=== PATIENT | female | born 1945 | race Caucasian/White ===

== ENCOUNTER 2025-01-05 07:37 | Day surgery (SDC) | payer OTHER, SELFPAY ==
--- NOTE | 2024-12-20 08:11 | HPS.HSE ---
Family Physician
-
Family Physician: NOT KNOW UNKNOWN - PT DOES
Chief Complaint
-
Persistent atrial fibrillation.
History of Present Illness
The patient is an 79-year-old female presenting today for a persistent atrial fibrillation. The patient reports a history of dyspnea on exertion, fatigue, palpitations, and lightheadedness secondary to this diagnosis. She previously
underwent a cardioversion in August 2024 for her arrhythmia. Unfortunately, within 1 week of her procedure, her atrial fibrillation returned and she became symptomatic once again. She is on current pharmacological therapy with Metoprolol and
Multaq. She was previously intolerant to Amiodarone. She does report compliance with Eliquis for oral anticoagulation due to a [id number] of 3. She notes that her current symptoms associated with her arrhythmia greatly interfere with her
activities of daily living and overall impact her quality of life. She is interested in pursuing pulmonary vein isolation for further arrhythmia management. She does report shortness of breath and lightheadedness today due to her arrhythmia but
denies chest pain, nausea, vomiting, diarrhea, dizziness, cough, sore throat, or fever.
Medical History
Past Medical History
Past Medical History: Reports Other
Additional Past Medical History:
1. Persistent atrial fibrillation, status post cardioversion 08/2024; pharmacological therapy with Multaq and Metoprolol, oral anticoagulation with Eliquis.
2. Hypertension.
3. Borderline hypercholesterolemia.
4. Congestive heart failure, preserved ejection fraction.
5. Bifascicular block.
6. Newly diagnosed obstructive sleep apnea, awaiting CPAP.
7. Chronic kidney disease stage 3.
8. GERD.
9. Dysphagia.
10. Colon polyps.
11. Diverticulosis.
12. Balance difficulties.
13. Frequent headaches.
14. Lumbar degenerative disc disease.
15. L2-L5 epidural abscess with associated sepsis, 2019, treated with IV antibiotic therapy.
16. Osteoarthritis.
17. Bladder cancer, status post tumor excision 1985.
18. DCIS of right breast, status post right lumpectomy, 2007, and radiation.
19. Uterine cancer, status post hysterectomy with bilateral salpingo-oophorectomy 2010.
20. BRCA 2 gene mutation positive.
21. Anxiety.
22. Depression.
23. Hearing impairment bilaterally.
24. Morbid obesity, BMI 44.2.
25. Remote history of heavy tobacco abuse.
Past Surgical History: Reports Other
Additional Past Surgical History:
1. Cardioversion.
2. Lumbar laminectomy.
3. Lumbar fusion.
4. Bladder tumor excision.
5. Pelvic lymph node excision.
6. Hysterectomy.
7. Left ankle fracture repair with hardware.
8. Right breast biopsy.
9. Right breast lumpectomy.
10. Multiple colonoscopies.
Social History
Tobacco: Former Smoker (She is a former 2 pack per day cigarette smoker who quit tobacco altogether in 2001. )
Alcohol: Occasional (wine drinking reported. )
Living: Other (She lives with her life partner Chema in a second floor condo. )
Family History
Family History: Not pertinent
Allergies / Home Medications
Allergy/Medication List:
Home medications:
1. Acetaminophen 650 mg p.o. twice a day.
2. Albuterol sulfate 2 puffs inhaled every 4 hours as needed.
3. Amlodipine 5 mg p.o. daily.
4. Eliquis 5 mg p.o. twice a day.
5. Celebrex 200 mg p.o. daily.
6. Multaq 400 mg p.o. twice a day.
7. Duloxetine 30 mg p.o. daily.
8. Ergocalciferol 1,250 mcg p.o. weekly.
9. Furosemide 20 mg p.o. daily.
10. Metoprolol Succinate 100 mg p.o. at bedtime.
11. Metoprolol Tartrate 50 mg p.o. daily.
12. Pantoprazole 40 mg p.o. twice a day.
13. Potassium chloride 20 meq p.o. daily.
14. Anoro Ellipta 1 inhalation daily.
Allergies: No known allergies.
Review of Systems
-
A 12 point ROS was completed and negative except as noted: Yes
Physical Exam
Vital Signs
Blood pressure 148/94. Heart rate 96. Respirations 18. Pulse ox 100% on room air.
Height 5 feet, 2 inches. Weight 109.5 kg. BMI 44.2.
Physical Exam
General: Well Developed, Well Nourished and No Apparent Distress
HEENT: NormoCephalic, Moist mucous membranes, Atraumatic and PERRLA
Respiratory: Clear
Cardiac: Irregular Rhythm
GI: Soft, Non Tender, Non Distended and Other (Morbidly obese. )
Musculoskeletal: No Edema and Normal Gait & Station
Skin: Warm and Dry
Neuro: AO x 3 and Nonfocal/grossly intact
Laboratory Results
-
DIAGNOSTIC STUDIES as of 12/20/2024: White blood cell count 7.4. Hemoglobin 14.2. Platelet count 146,000. PT 16.1. INR 1.27. Sodium 139. Potassium 4.3. BUN 19. Creatinine 1.1. Glucose 108. Calcium 8.9. Magnesium 2.1. AST 25. ALT 19. Albumin 4.1.
Type and screen O negative.
EKG 12/20/2024: Atrial fibrillation. Left axis deviation. Inferior infarct and anterolateral infarct, age undetermined.
Chest 12/20/2024: Short segment common vestibule for the left superior and inferior pulmonary veins, fairly commonly seen and considered normal variant. No evidence of left atrial thrombus. Small right pleural effusion. Minimal left pleural effusion.
Echocardiogram 11/02/2024: Ejection fraction is 50-55%. Mild left ventricular hypertrophy. Atrial fibrillation noted.
Impression/Plan
-
IMPRESSION/PLAN:
1. Persistent atrial fibrillation: The patient is in need of pulmonary vein isolation with Dr. Blanco Richard on 01/05/2025. The benefits and risks of the procedure have been explained to the patient. The patient understands these risks and
wishes to proceed. She will not be required to undergo a pre-procedural transesophageal echocardiogram as she has been compliant with her home oral anticoagulation. She is aware to continue her Eliquis uninterrupted prior to her upcoming ablation.
She will take no medications the morning of her procedure. Post-procedure, the discontinuation of Multaq will be considered.
[2024-12-20 08:59] VITALS: BMI 44.2
[2024-12-20 09:50] LABS: % Basophils 1.2 % (0-2); % Eosinophils 4.2 % (0-6); % Immature Granulocytes 0.8 % (0-0.5); % Lymphocytes 11.5 % (20.5-51.1); % Monocytes 10.5 % (1.7-9.3); % Neutrophils 71.8 % (42.2-75.2); Absolute Basophils 0.1 10^3/uL (0-0.2); Absolute Eosinophils 0.3 10^3/uL (0-0.7); Absolute Immature Granulocytes 0.1 10^3/uL (0-0.05); Absolute Lymphocytes 0.9 10^3/uL (1.2-3.4); Absolute Monocytes 0.8 10^3/uL (0.1-0.6); Absolute Neutrophils 5.3 10^3/uL (1.4-6.5); Hematocrit 42.4 % (37.0-47.0); Hemoglobin 14.2 g/dL (12.0-16.0); Mean Corp Hgb Conc. 33.5 g/dL (33.0-37.0); Mean Corpuscular Hgb 30.8 pg (27.0-31.0); Mean Platelet Volume 10.9 fL (7.4-10.4); Nucleated Red Blood Cells % 0 %; Platelet Count 146 10^3/uL (130-400); Red Blood Cell Count 4.61 10^6/uL (4.20-5.40); Red Cell Dist. Width 13.8 % (11.5-14.5); White Blood Cell Count 7.4 10^3/uL (4.8-10.8)
[2024-12-20 10:11] LABS: INR 1.27; PT 16.1 Sec (11.4-14.6)
[2024-12-20 10:29] LABS: ALT (SGPT) 19 U/L (0-35); AST (SGOT) 25 U/L (14-36); Albumin 4.1 g/dl (3.5-5.0); Alkaline Phosphatase 94 U/L (38-126); Blood Urea Nitrogen 19 mg/dl (7-17); Calcium 8.9 mg/dl (8.4-10.2); Carbon Dioxide 27 mmol/L (22-30); Chloride 102 mmol/L (98-107); Estimated Creatinine Clearance 48 ml/min; Glucose 108 mg/dl (70-99); Magnesium 2.1 mg/dl (1.6-2.3); Potassium 4.3 mmol/L (3.5-5.1); Sodium 139 mmol/L (135-145); Total Bilirubin 0.6 mg/dl (0.2-1.3); Total Protein 6.5 g/dl (6.3-8.2)
[2025-01-05] VITALS (10 sets, daily range): BP systolic 93–133; BP diastolic 51–86; BMI 42.7
[2025-01-05] MEDS: TYLENOL 1000 MG PO (10:10)
--- NOTE | 2025-01-05 10:15 | ITS.CL.ABL ---
[employer] - Ablation
Ablation
Procedure Report:
ELECTROPHYSIOLOGIC STUDY AND POSSIBLE ABLATION
DATE: January 05, 2025
Primary Mobile Application Development Lead: Dr. Willy Dickey
INDICATION:
Symptomatic Atrial Fibrillation.
Persistent
HISTORY: See H and P.
Symptomatic AF, poorly controlled with attempted medical therapy.
She is referred from Dr. Willy Dickey
She has symptomatic persistent atrial fibrillation.
She had initially been treated with amiodarone in 2022 but was intolerant and amiodarone was stopped in May 2023.� She had recurrent symptomatic atrial fibrillation and was initiated on dronedarone September 01, 2024.
She underwent successful electrical cardioversion September 12, 2024.She subsequently has recurred.
She has been symptomatic with atrial fibrillation mostly dyspnea on exertion and fatigue
She has been on Eliquis 5 mg twice daily for atrial fibrillation related thromboembolic risk reduction.
She is also been maintained on metoprolol for rate control.
Medical history also includes hypertension.
There has been concern for obstructive sleep apnea and a sleep study was ordered.
Echocardiogram November 02, 2024 from [facility] finds LVEF 50-55%, mild LVH, normal RV size and function, normal size left atrium and right atrium.� She was noted to be in atrial fibrillation at that time.� No significant valvular disease
is noted
HAS-BLED: 3
Age
Abnormal Renal Function
NSAIDS
CHADSVASc: 4
HTN
Age
F Gender
HISTORY: See H and P.
Symptomatic AF, poorly controlled with attempted medical therapy.
ANTIARRHYTHMIC DRUG: Dronedarone
ANTICOAGULATION: Apixaban 5 mg twice daily
'TIME-OUT': called and confirmed.
SEDATION/ANESTHESIA: provided via the anesthesia department using general anesthesia.
PROCEDURE:
Ultrasound Guidance with real-time visualization of needle insertion and vessel patency performed by md for femoral venous Vascular Access. Images were taken and saved for the patient's permanent record. Imaging findings typical femoral venous
anatomy. Direct visualization of needle puncture into the femoral vein was observed and recorded.
A decapolar CS catheter was placed within the CS for mapping and pacing.
The intracardiac ultrasound catheter was positioned in the RA for continuous intracardiac ultrasound imaging.
Heparin bolus and infusion to target ACT at 300 -350 seconds was administered. Transseptal puncture was performed. This entailed advancing a sheath with dilator into the superior vena cava and withdrawing both (monitoring intracardiac ultrasound,
fluoroscopy and tip pressure) with the tip oriented toward the atrial septum. The fossa ovalis was engaged (indicated by sudden displacement of the sheath tip as well as tenting of the fossa seen on intracardiac ultrasound).
AcFrameBuzz transseptal system was used. Left atrial catheter position was confirmed by echocardiographic imaging, pressure monitoring (LA mean pressure [ ] mm Hg) and fluoroscopy. The sheath was advanced over the dilator and positioned in the left
atrium.
The multipolar mapping catheter was initially positioned through the transseptal sheath for high density mapping.
Geometry and voltage mapping was performed using the awe.sm multipolar grid catheter. Ensite-X was utilized for three-dimensional electroanatomical mapping.
A 3-D map was created using Ensite-X in Voxel mode. A 3-D reconstructed CT image was compared to the 3-D Navex map to assist in anatomic evaluation, mapping and ablation.
The Grockit Pulse Select PFA catheter and system was used for cardiac ablation. Catheter positioning was guided and confirmed using both I.C.E. and fluoroscopy.
PV isolation approach was used to electrically isolate each PV ostia (LSPV, LIPV, RSPV, RIPV).
Additional energy applications/additional ablation set was required to accomplish wide area circumferential ablation around each of the pulmonary vein sets and additionally ablation to accomplish LA posterior wall ablation.
Remapping with the Multani multipolar grid catheter found that all PVPs were eliminated at each vein demonstrating entrance block. Also pacing from the multipolar mapping catheter around the the circumference of the ostia was performed at 10 ma and
2.0 msec output to assess for exit block. This demonstrated electrical isolation at each of the pulmonary vein ostia (LSPV, LIPV, RSPV, RIPV). There is also entrance and exit block at the LA posterior wall.
Programmed electrostimulation failed to induce any sustained arrhythmias.
Additional energy deliveries were required until the veins were felt to be fully isolated and WACA demonstrated. Additionally remapping findings wide area circumferential ablation around each of the pulmonary vein sets.
I.C.E. :
Pre-Ablation Post-Ablation
LVEF: 55 % 55 %
WMA: none none
Pericardial effusion: none none
COMPLICATIONS:
none
SUMMARY:
She is enrolled in the [employer] postapproval study for the pulse select PFA system
- Mapping and ablation to isolate the PVs
- Additional AF ablation set after PVI.
- 3-D Electroanatomical Mapping
- Intracardiac Ultrasound
- Ultrasound guidance for vascular access
RECOMMENDATIONS:
- Observe in monitored bed.
- Maintain oral anticoagulation.
- Continue cardiovascular care with [ ]
Copy to:
Dr. Willy Dickey
[2025-01-05 11:30] LABS: ACT-LR - POC 355 Seconds (116-155)
[2025-01-05 11:44] LABS: ACT-LR - POC 340 Seconds (116-155)
[2025-01-05 14:39] LABS: ACT-LR - POC > 397 Seconds (116-155)
--- NOTE | 2025-01-05 15:32 | W.PN.UPDATE ---
Update Note
Progress Note Update
79 yo WF s/p PVI (same day). She has mild sore throat and slight heaviness in chest, denies sob, yulisa diet, EKG SR/SB 1deg AVB, R fem site c/d/i soft. She will resume Eliquis tonight. We will stop Multaq and continue metoprolol. Activity restrictions
reviewed. She will f/u Evelyn POLICE ARTIST in 1 mo, then continue cardiac care with Dr. Dickey. She is for d/c home after 5pm if groin stable and voiding.
== END 2025-01-05 17:05 | disposition home or self-care (01) ==
LOC: CATH 07:37
PROVIDERS: ATTENDING PHYSICIAN Internal Medicine Cardiovascular Disease; FAMILY PHYSICIAN Family Medicine; OTHER PHYSICIAN Internal Medicine Cardiovascular Disease
DX: I48.19 Other persistent atrial fibrillation (principal); R06.02 Shortness of breath; I13.0 Hypertensive heart and chronic kidney disease with heart failure and stage 1 through stage 4 chronic kidney disease, or unspecified chronic kidney disease; E66.01 Morbid (severe) obesity due to excess calories; I50.30 Unspecified diastolic (congestive) heart failure; E78.00 Pure hypercholesterolemia, unspecified; F32.A Depression, unspecified; F41.9 Anxiety disorder, unspecified; G47.33 Obstructive sleep apnea (adult) (pediatric); I45.2 Bifascicular block; K21.9 Gastro-esophageal reflux disease without esophagitis; R13.10 Dysphagia, unspecified; Z86.0100 Personal history of colon polyps, unspecified; K57.90 Diverticulosis of intestine, part unspecified, without perforation or abscess without bleeding; R51.9 Headache, unspecified; M51.369 Other intervertebral disc degeneration, lumbar region without mention of lumbar back pain or lower extremity pain; M19.90 Unspecified osteoarthritis, unspecified site; Z85.51 Personal history of malignant neoplasm of bladder; Z90.722 Acquired absence of ovaries, bilateral; Z90.710 Acquired absence of both cervix and uterus; Z85.42 Personal history of malignant neoplasm of other parts of uterus; Z15.01 Genetic susceptibility to malignant neoplasm of breast; H91.93 Unspecified hearing loss, bilateral; Z68.41 Body mass index [BMI] 40.0-44.9, adult; Z87.891 Personal history of nicotine dependence; Z79.899 Other long term (current) drug therapy; Z79.1 Long term (current) use of non-steroidal anti-inflammatories (NSAID); Z79.01 Long term (current) use of anticoagulants; N18.30 Chronic kidney disease, stage 3 unspecified; I50.9 Heart failure, unspecified
CPT/HCPCS: C1732; C1894; C1733; C1730; C1892; C1759; 36415; 75572; 76937; 80053; 83735; 85025; 85347; 85610; 86850; 86900; 86901; 93005; 93656; 93657; C1766; Q9967

== ENCOUNTER 2025-05-03 13:54 | Emergency (ER) | payer OTHER, SELFPAY ==
[2025-05-03] VITALS (7 sets, daily range): BP systolic 113–142; BP diastolic 82–120; BMI 42.2
[2025-05-03 14:45] LABS: % Basophils 1.3 % (0-2); % Eosinophils 3.5 % (0-6); % Immature Granulocytes 0.6 % (0-0.5); % Monocytes 11.2 % (1.7-9.3); % Neutrophils 67.4 % (42.2-75.2); Absolute Basophils 0.1 10^3/uL (0-0.2); Absolute Eosinophils 0.2 10^3/uL (0-0.7); Absolute Lymphocytes 1.1 10^3/uL (1.2-3.4); Absolute Monocytes 0.8 10^3/uL (0.1-0.6); Absolute Neutrophils 4.7 10^3/uL (1.4-6.5); Hematocrit 39.8 % (37.0-47.0); Hemoglobin 13.6 g/dL (12.0-16.0); Mean Corp Hgb Conc. 34.2 g/dL (33.0-37.0); Mean Corpuscular Hgb 30.5 pg (27.0-31.0); Mean Corpuscular Volume 89.2 fL (81.0-99.0); Mean Platelet Volume 10.4 fL (7.4-10.4); Nucleated Red Blood Cells % 0 %; Platelet Count 151 10^3/uL (130-400); Red Blood Cell Count 4.46 10^6/uL (4.20-5.40); Red Cell Dist. Width 13.2 % (11.5-14.5); White Blood Cell Count 6.9 10^3/uL (4.8-10.8)
--- NOTE | 2025-05-03 15:04 | ED.GENMED ---
History of Present Illness
General
Chief Complaint: Chest Pain
Source: patient
Exam Limitations: none
Time Seen by Provider: 05/03/25 14:29
Nursing documentation reviewed up to this point in time: agreed with
History of Present Illness
History of Present Illness:
Patient is a 80-year-old female with history of A-fib on Eliquis CHF hypertension presents to the ER for evaluation. She reports that she had a cardioversion on January [address] Wili Richard. She reports on April 27, she went into A-fib.
She felt lightheaded with nausea and some chest pressure and has similar symptoms in the past when she previously had A-fib. She wanted to confirm she was in A-fib and did not want to come back to the hospital.
Since then she has been intermittently lightheaded nauseous has had some chest pressure and feels breathless. She was instructed by cardiology to go to the ER. She has been on her normal Eliquis dose and has not skipped a dose. In addition she
has been taking all of her other medications including her metoprolol ER amlodipine furosemide and others. She denies any new l/e edema.
Her primary brownell operator is DR Dickey at [facility]
Review of Systems
Review of Systems
Allergies reviewed?: Yes
All Other Systems: ROS reviewed and negative except as documented in HPI and ROS
Constitutional: Reports no symptoms
Respiratory: Reports trouble breathing
Cardiac: Reports chest pain (chest pressure ) and palpitations
ABD/GI: Reports no symptoms
Musculoskeletal: Reports no symptoms
Skin: Reports no symptoms
Neurological: Reports no symptoms
Psychiatric: Reports no symptoms
Phy Exam
General Physical Exam
General Presentation: well appearing and no apparent distress
General age: appears stated age
General Skin: warm and dry
General Habitus: normal
General Mental: alert
General Hydration: appears well hydrated
Cardiovascular Exam
Cardiovascular Exam: irregularly irregular
Pulmonary Exam
Pulmonary Exam: lungs clear and no respiratory distress
Neurological Exam
Neurological Exam: alert and oriented x3
Musculoskeletal Exam
Musculoskeletal Exam: full ROM
Skin Exam
Skin Exam: normal color and warm/dry
Psychiatric Exam
Psychiatric Exam: normal mood/affect
Scores
Heart Score for Chest Pain Patients
STEMI patient?: Not applicable
Course
Orders/Labs/Results
Orders:
Orders
05/03/25 14:06
EKG [Electrocardiogram (*1)] Urgent
Reason for Study: Chest Pain
EKG- Treatment ONCE
05/03/25 14:38
Complete Blood Count/With Diff Urgent
Comprehensive Metabolic Panel Urgent
Magnesium Urgent
Pro-BNP [NT-proBNP] Urgent
Troponin I Urgent
05/03/25 15:07
Chest [CR Chest - 2 Views ] Urgent
Comment:
Reason For Exam: sob
05/03/25 17:02
Furosemide [Lasix] 40 mg IV NOW STA
Abnormal Lab Results
05/03/25
14:38
Absolute Lymphs (auto) 1.1 L 10^3/uL
(1.2-3.4)
Absolute Monos (auto) 0.8 H 10^3/uL
(0.1-0.6)
Immature Gran % 0.6 H %
(0-0.5)
Lymphocytes % 16.0 L %
(20.5-51.1)
Monocytes % 11.2 H %
(1.7-9.3)
Chloride 108 H mmol/L
(98-107)
BUN 33 H mg/dl
(7-17)
Creatinine 1.2 H mg/dL
(0.6-1.0)
Glucose 109 H mg/dl
(70-99)
05/03/25 14:38
05/03/25 14:38
Vital Signs
Initial and Last Documented VS:
Initial Vital Signs
Temp Pulse Resp BP Pulse Ox
98.6 F 81 20 132/82 97
05/03/25 13:56 05/03/25 13:56 05/03/25 13:56 05/03/25 13:56 05/03/25 13:56
Last Documented Vital Signs
Temp Pulse Resp BP Pulse Ox
98.5 F 80 13 133/94 93
05/03/25 14:43 05/03/25 17:11 05/03/25 17:00 05/03/25 17:11 05/03/25 16:45
MDM/Problems Addressed
Differential Diagnosis Includes:
Not limited to atrial fibrillation, CHF less likely ACS
MDM/Problems Addressed:
As documented patient is an 80-year-old female with history of A-fib CHF hypertension had an ablation by Dr. Richard January 05 and felt like she went into A-fib April 27. She has not missed Eliquis dose. This was demonstrated on her watch and
now show she felt lightheaded mildly breathless and same as her prior A-fib symptoms. Patient does present in A-fib however in no acute distress lungs are clear she denies any lower extremity swelling however BNP is questionable mild CHF on x-ray
interpreted by ED physician.
Patient has been in a controlled rate of A-fib here in the ER. Discussed possibility of admission for CHF however patient adamantly does not want to be admitted. I did speak with Dr. Agustin on-call .
I did review labs patient's BUN /creatinine mildly increased compared to prior labs.
Patient is on 20 mg Lasix a day
As recommended by cardiology patient is to increase her Lasix to 40 mg a day and cardiology made her an appointment at 3:20 PM on May 09 at the [facility]. They will check her BMP next week during that visit
Patient is agreeable to this plan of care she is to continue her Eliquis and return if any worsening of symptoms
*Radiology
Radiology exam reviewed: radiology read reviewed
*Pulse Oximetry
Patient hypoxic: no (97 % RA non hypoxic)
*EKG
Interpreted by ED Provider?: Yes
Comparison EKG: changes noted (afib replaced NSR )
Heart Rate: 84
Rate: normal
Rhythm: a-fib
Ischemia: non-specific ST changes
*Critical Care Note
Total Time (30-74mins, 75-104mins- exclusive of procedures): Not Applicable
Data Reviewed
Review of Other/Old Records Reveals: Other (ablation report )
ED Attending Note
-
Portions of this chart may have been created with voice recognition software.� Occasional wrong word or��sound alike� substitutions may have occurred due to the inherent limitations of voice recognition software.
Discharge Plan
Departure
Patient Disposition: Home (Routine Discharge)
Date of Disposition: 05/03/25
Time of Disposition: 16:56
Patient with high blood pressure during this ER visit?: Yes
Condition: Fair
Covid-19: Not Applicable
Discharge Problem:
Atrial fibrillation
Instructions: Atrial fibrillation - Discharge instructions
Prescriptions:
No Action
celecoxib [Celebrex] 200 mg Capsule
200 mg PO DAILY
metoprolol succinate 100 mg Tablet Extended Release 24 Hr
100 mg PO HS
potassium chloride [Klor-Con 10] 10 mEq Tablet Extended Release
20 meq PO DAILY
amlodipine 5 mg Tablet
5 mg PO DAILY
pantoprazole 40 mg Tablet,Delayed Release (Dr/Ec)
40 mg PO DAILY
metoprolol tartrate 50 mg Tablet
50 mg PO DAILY
furosemide 20 mg Tablet
20 mg PO DAILY
ergocalciferol (vitamin D2) 1,250 mcg (50,000 unit) Capsule
1,250 mcg PO WE
duloxetine 30 mg Capsule,Delayed Release(Dr/Ec)
30 mg PO DAILY
Eliquis 5 mg Tablet
5 mg PO BID
Anoro Ellipta 62.5-25 mcg/actuation Blister With Device
1 inh INHALATION DAILY
albuterol sulfate 90 mcg/actuation Aerosol Powdr Breath Activated
2 inh INHALATION Q4H PRN (Reason: sob)
acetaminophen 500 mg Tablet
1,500 mg PO BID
Referrals:
Tamanna Ponce MD [Family Provider]
Blanco Richard MD [Active, Cardiology]
Activity Restrictions/Additional Instructions:
As discussed please continue your Eliquis. Please also increase your Lasix to 40 mg daily. You have an appointment with Dr. Wili Sandhu on May 09 at 3:20 PM in the [facility] office
Return if any worsening of symptoms including chest pain shortness of breath or any further concerns.
Interventions
Interventions:
*Risk Screen - Suicide Last Done: 05/03/25 14:43
*General Assessment Last Done: 05/03/25 13:56
*Neglect/Abuse Screening Last Done: 05/03/25 14:43
*ED- Fall Risk Assessment Last Done: 05/03/25 14:43
*ED COVID-19 Vaccine History Last Done: 05/03/25 13:56
*Nursing Disposition Last Done: 05/03/25 17:16
ED- Cardiac Assessment Last Done: 05/03/25 14:43
Discharge Date and Time
Discharge Date/Time: 05/03/25 17:17
Print Language: MAORI
[2025-05-03 15:11] LABS: NT-proBNP 4990 pg/ml; Troponin I 0.014 ng/ml
[2025-05-03 15:49] LABS: ALT (SGPT) 19 U/L (0-35); AST (SGOT) 27 U/L (14-36); Albumin 4.1 g/dl (3.5-5.0); Alkaline Phosphatase 104 U/L (38-126); Blood Urea Nitrogen 33 mg/dl (7-17); Calcium 9.4 mg/dl (8.4-10.2); Carbon Dioxide 25 mmol/L (22-30); Chloride 108 mmol/L (98-107); Estimated Creatinine Clearance 43 ml/min; Glucose 109 mg/dl (70-99); Magnesium 1.9 mg/dl (1.6-2.3); Potassium 4.6 mmol/L (3.5-5.1); Sodium 140 mmol/L (135-145); Total Bilirubin 0.5 mg/dl (0.2-1.3); Total Protein 6.6 g/dl (6.3-8.2); eGFR 45.48
[2025-05-03] MEDS: LASIX 40 MG IV (17:11)
== END 2025-05-03 17:17 | disposition home or self-care (01) ==
LOC: EMR 13:54
PROVIDERS: Nurse Practitioner; EMERGENCY PHYSICIAN Emergency Medicine; FAMILY PHYSICIAN Family Medicine
DX: I48.91 Unspecified atrial fibrillation (principal); I11.0 Hypertensive heart disease with heart failure; I50.9 Heart failure, unspecified; Z79.01 Long term (current) use of anticoagulants; Z79.899 Other long term (current) drug therapy
CPT/HCPCS: 99285; 96374; 71046; 80053; 83735; 83880; 84484; 85025; 93005

== ENCOUNTER 2025-05-15 09:16 | Day surgery (SDC) | payer OTHER, SELFPAY ==
--- NOTE | 2025-05-15 21:04 | W.PN.UPDATE ---
Update Note
Progress Note Update
Patient presented for elective DC cardioversion for recurrent atrial fibrillation found to be in sinus rhythm confirmed by EKG. Procedure canceled and patient sent home with plan for follow-up with her scallop binder, Dr. Wili Richard
== END 2025-05-15 11:17 | disposition home or self-care (01) ==
LOC: CATH 09:16
PROVIDERS: ATTENDING PHYSICIAN Internal Medicine Cardiovascular Disease; FAMILY PHYSICIAN Family Medicine; OTHER PHYSICIAN Internal Medicine Cardiovascular Disease
DX: I48.19 Other persistent atrial fibrillation (principal); Z53.09 Procedure and treatment not carried out because of other contraindication; I11.0 Hypertensive heart disease with heart failure; I50.9 Heart failure, unspecified; G47.33 Obstructive sleep apnea (adult) (pediatric); E66.9 Obesity, unspecified; Z68.41 Body mass index [BMI] 40.0-44.9, adult; Z79.01 Long term (current) use of anticoagulants
CPT/HCPCS: 93005

== ENCOUNTER 2025-07-17 05:49 | Day surgery (SDC) | payer OTHER, SELFPAY ==
[2025-07-04 09:53] VITALS: BMI 42.7
[2025-07-04 10:52] LABS: Hematocrit 39.7 % (37.0-47.0); Hemoglobin 13.3 g/dL (12.0-16.0); Mean Corp Hgb Conc. 33.5 g/dL (33.0-37.0); Mean Corpuscular Volume 89.6 fL (81.0-99.0); Nucleated Red Blood Cells % 0 %; Platelet Count 133 10^3/uL (130-400); Red Cell Dist. Width 13.2 % (11.5-14.5)
[2025-07-04 10:53] LABS: INR 1.33; PT 16.8 Sec (11.4-14.6)
[2025-07-04 11:04] LABS: ALT (SGPT) 12 U/L (0-35); AST (SGOT) 21 U/L (14-36); Albumin 4.0 g/dl (3.5-5.0); Alkaline Phosphatase 84 U/L (38-126); Blood Urea Nitrogen 29 mg/dl (7-17); Calcium 9.0 mg/dl (8.4-10.2); Carbon Dioxide 28 mmol/L (22-30); Chloride 107 mmol/L (98-107); Estimated Creatinine Clearance 40 ml/min; Glucose 100 mg/dl (70-99); Magnesium 2.1 mg/dl (1.6-2.3); Potassium 4.7 mmol/L (3.5-5.1); Sodium 140 mmol/L (135-145); Total Protein 6.3 g/dl (6.3-8.2); eGFR 41.31
--- NOTE | 2025-07-04 11:08 | HPS.HSE ---
Family Physician
-
Family Physician: Tamanna Ponce
Chief Complaint
-
Persistent atrial fibrillation.
History of Present Illness
The patient is an 79-year-old female presenting today for a persistent atrial fibrillation. The patient reports a history of dyspnea on exertion, fatigue, chest discomfort, palpitations, and lightheadedness secondary to this diagnosis. She
previously underwent a cardioversion in August 2024 and pulmonary vein isolation in December 2024 for her arrhythmia. Unfortunately, by April 2024, her atrial fibrillation returned and she became symptomatic once again. A cardioversion was scheduled
for May 15, 2025; however, it was aborted after an EKG confirmed normal sinus rhythm. She is on current pharmacological therapy with Metoprolol and Multaq. She does note increased fatigue and listlessness while on Multaq. She was previously
intolerant to Amiodarone. She does report compliance with Eliquis for oral anticoagulation due to a [id number] of 3. She notes that her current symptoms associated with her arrhythmia greatly interfere with her activities of daily living and
overall impact her quality of life. She is interested in pursuing pulmonary vein isolation again for further arrhythmia management. She denies any current complaints today such as chest pain, shortness of breath at rest, nausea, vomiting, diarrhea,
cough, sore throat, or fever.
Medical History
Past Medical History
Past Medical History: Reports Other
Additional Past Medical History:
1. Persistent atrial fibrillation, status post cardioversion 08/2024; pharmacological therapy with Multaq and Metoprolol Succinate, oral anticoagulation with Eliquis.
2. Hypertension.
3. Borderline hypercholesterolemia.
4. Congestive heart failure, preserved ejection fraction.
5. Bifascicular block.
6. Obstructive sleep apnea, non-compliant with CPAP.
7. Chronic kidney disease stage 3.
8. GERD.
9. Dysphagia.
10. Colon polyps.
11. Diverticulosis.
12. Balance difficulties.
13. Frequent headaches.
14. Lumbar degenerative disc disease.
15. L2-L5 epidural abscess with associated sepsis, 2019, treated with IV antibiotic therapy.
16. Osteoarthritis.
17. Bladder cancer, status post tumor excision 1985.
18. DCIS of right breast, status post right lumpectomy, 2007, and radiation.
19. Uterine cancer, status post hysterectomy with bilateral salpingo-oophorectomy 2010.
20. BRCA 2 gene mutation positive.
21. Anxiety.
22. Depression.
23. Hearing impairment bilaterally.
24. Morbid obesity, BMI 42.6.
25. Remote history of heavy tobacco abuse.
Past Surgical History: Reports Other
Additional Past Surgical History:
1. Pulmonary vein isolation.
2. Cardioversion.
3. Lumbar laminectomy.
4. Lumbar fusion.
5. Bladder tumor excision.
6. Pelvic lymph node excision.
7. Hysterectomy.
8. Left ankle fracture repair with hardware.
9. Right breast biopsy.
10. Right breast lumpectomy.
11. Multiple colonoscopies.
Social History
Tobacco: Former Smoker (She is a former 2 pack per day cigarette smoker who quit tobacco altogether in 2001. )
Alcohol: Occasional (wine drinking reported.)
Living: Other (She lives with her life partner Chema in a second floor condo.)
Family History
Family History: Not pertinent
Allergies / Home Medications
Allergy/Medication List:
Home medications:
1. Acetaminophen 1500 mg p.o. twice a day.
2. Albuterol sulfate 1 puffs inhaled every 4 hours as needed.
3. Amlodipine 5 mg p.o. daily.
4. Eliquis 5 mg p.o. twice a day.
5. Celebrex 200 mg p.o. daily.
6. Multaq 400 mg p.o. every 12 hours.
7. Duloxetine 30 mg p.o. daily.
8. Ergocalciferol 1,250 mcg p.o. weekly.
9. Furosemide 20 mg p.o. daily.
10. Metoprolol Succinate 100 mg p.o. at bedtime.
11. Metoprolol Succinate 50 mg p.o. daily.
12. Pantoprazole 40 mg p.o. twice a day.
13. Potassium chloride 20 meq p.o. daily.
Allergies: No known allergies.
Review of Systems
-
A 12 point ROS was completed and negative except as noted: Yes
Physical Exam
Vital Signs
Blood pressure 135/75. Heart rate 62. Respirations 18. Pulse ox 97% on room air.
Height 5 feet, 3 inches. Weight 109.2 kg. BMI 42.6.
Physical Exam
General: Well Developed, Well Nourished and No Apparent Distress
HEENT: NormoCephalic, Moist mucous membranes, Atraumatic and PERRLA
Respiratory: Clear
Cardiac: Regular Rhythm
GI: Soft, Non Tender, Non Distended and Other (Morbidly obese. )
Musculoskeletal: Normal Gait & Station and Other (Bilateral lower extremity lymphedema. )
Skin: Warm and Dry
Neuro: AO x 3 and Nonfocal/grossly intact
Laboratory Results
-
07/04/25 10:15
07/04/25 10:15
Laboratory Results
PT 16.8 Sec (11.4-14.6) H 07/04/25 10:15
INR 1.33 07/04/25 10:15
Total Bilirubin 0.8 mg/dl (0.2-1.3) 07/04/25 10:15
AST 21 U/L (14-36) 07/04/25 10:15
ALT 12 U/L (0-35) 07/04/25 10:15
Alkaline Phosphatase 84 U/L (38-126) 07/04/25 10:15
Type and screen O negative.
EKG 07/04/2025: Sinus rhythm with sinus arrhythmia and first degree AV block. Left axis deviation. Minimal voltage criteria for LVH, may be normal variant. Inferior infarct, age undetermined. Anterolateral infarct, cited on or before December 20,
2024.
Impression/Plan
-
IMPRESSION/PLAN:
1. Persistent atrial fibrillation: The patient is in need of pulmonary vein isolation with Dr. Blanco Richard on 07/17/2025. The benefits and risks of the procedure have been explained to the patient. The patient understands these risks and
wishes to proceed. She will not be required to undergo a pre-procedural transesophageal echocardiogram as she has been compliant with her home oral anticoagulation. She is aware to continue her Eliquis uninterrupted prior to her upcoming ablation.
She will take no medications the morning of her procedure.
[2025-07-17] VITALS (24 sets, daily range): BP systolic 98–147; BP diastolic 58–94; PULSE 59; O2SAT 96; BMI 43.0
--- NOTE | 2025-07-17 07:26 | ITS.CL.ABL ---
Guest Relations Associate - Ablation
Ablation
Procedure Report:
ELECTROPHYSIOLOGIC STUDY AND POSSIBLE ABLATION
DATE: July 17, 2025
Primary W[place] Derrick Operator: Dr. Willy Dickey
INDICATION:
Symptomatic Atrial Fibrillation.
Persistent
HISTORY: See H and P.
Symptomatic AF, poorly controlled with attempted medical therapy
She is referred from Dr. Willy Dickey
She has symptomatic persistent atrial fibrillation.
She had initially been treated with amiodarone in 2022 but was intolerant and amiodarone was stopped in May 2023.� She had recurrent symptomatic atrial fibrillation and was initiated on dronedarone September 01, 2024.
She underwent successful electrical cardioversion September 12, 2024. She subsequently recurred.
She underwent PVI2 (PFA with Pulse Select as part of the [employer] Pulse Select Post-Approval Study)
She has been symptomatic with atrial fibrillation mostly dyspnea on exertion and fatigue with exacerbations of heart failure with preserved ejection fraction.
She has been on Eliquis 5 mg twice daily for atrial fibrillation related thromboembolic risk reduction.
She is also been maintained on metoprolol for rate control.
Medical history also includes hypertension.
There has been concern for obstructive sleep apnea and a sleep study was ordered.
Echocardiogram November 02, 2024 from [facility] finds LVEF 50-55%, mild LVH, normal RV size and function, normal size left atrium and right atrium.� She was noted to be in atrial fibrillation at that time.� No significant valvular disease
is noted
HAS-BLED: 3
Age
Abnormal Renal Function
NSAIDS
CHADSVASc: 5
HFpEF
HTN
Age
F Gender
PRESENTING RHYTHM:SR with frequent PACs
HISTORY: See H and P.
Symptomatic AF, poorly controlled with attempted medical therapy.
ANTIARRHYTHMIC DRUG: Dronedarone
ANTICOAGULATION: Apixaban 5 mg twice daily
'TIME-OUT': called and confirmed.
SEDATION/ANESTHESIA: provided via the anesthesia department using general anesthesia.
PROCEDURE:
Ultrasound Guidance with real-time visualization of needle insertion and vessel patency performed by me for femoral venous Vascular Access.
Under real-time US guidance, the needle was advanced with negative pressure into the vein. The needle was seen entering the vessel lumen with a good return of dark red flow, the syringe was removed, non-pulsatile, dark red blood low was noted and
the wire was passed without difficulty, then the needle was removed. US confirmed the wire was in the vein, not going into an artery,
Images were taken and saved for the patient's permanent record. Imaging findings typical femoral venous anatomy. Direct visualization of needle puncture into the femoral vein was observed and recorded.
A decapolar CS catheter was placed within the CS for mapping and pacing.
The intracardiac ultrasound catheter was positioned in the RA for continuous intracardiac ultrasound imaging.
Heparin bolus and infusion to target ACT at 300 -350 seconds was administered. Transseptal puncture was performed. This entailed advancing a sheath with dilator into the superior vena cava and withdrawing both (monitoring intracardiac ultrasound,
fluoroscopy and tip pressure) with the tip oriented toward the atrial septum. The fossa ovalis was engaged (indicated by sudden displacement of the sheath tip as well as tenting of the fossa seen on intracardiac ultrasound).
Transseptal puncture was performed. Left atrial catheter position was confirmed by echocardiographic imaging, pressure monitoring (LA mean pressure 16 mm Hg) and fluoroscopy. The sheath was advanced over the dilator and positioned in the left
atrium.
The Desiguala multipolar mapping/ablation Sphere-9 catheter was positioned through the transseptal sheath for high density mapping.
Geometry and voltage mapping was performed using the Desiguala mapping system for three-dimensional electroanatomical mapping.
Catheter positioning was guided and confirmed using both I.C.E. and fluoroscopy.
High density electroanatomical three-dimensional mapping demonstrated 3 PVs: Common Left, RSPV, RIPV.
There is lack of electrical isolation at the RSPV and at the inf quadrant of the common left PV.
There is lack of full posterior wall isolation with islands of fractionated signals at the posterior wall.
There is fractionated patchy electrograms along the floor of the posterior wall.
There is fractionated patchy electrograms along the ligament of Juan David at the PV aspect.
Ablation strategy included reisolation of the PVIs as well as mapping and ablation of extra PV contributors to atrial fibrillation
After accomplishing pulmonary venous isolation, mapping identified additional areas likely to be extra PV contributors to atrial fibrillation. These areas demonstrated patchy low voltage as well as complex fractionated electrograms. These areas can
be sites for the formation of rotors which can drive and maintain atrial fibrillation. These areas are known to be significant contributors to initiation and perpetuation of atrial fibrillation.
Additional energy applications/additional ablation sets targeted extra PV contributors to atrial fibrillation.
Targets for additional PFA ablation included:
LA posterior wall targeted with pulsed electric field energy isolating the posterior wall of the left atrium
After ablation of the posterior wall, additional targets were addressed:
LA inferior floor line
The ridge of tissue between the left atrial appendage and the left sided pulmonary veins (Ligament of Juan David )
These areas were ablated using pulsed electric field energy eliminating the extra PV contributors to atrial fibrillation.
Post ablation mapping finds entrance and exit block at each of the pulmonary veins, the LA posterior wall and at the additional lines at Inferior/floor of the LA and the Ligament of Marshal rendering the sites no longer able to contribute to atrial
fibrillation.
Programmed electrical stimulation was then performed with burst atrial pacing at 300 ms and atrial tachyarrhythmia was induced, cycle length 340 ms with activation proximal to distal on the coronary sinus catheter. Entrainment pacing from the
proximal coronary sinus catheter finds this is outside the tachycardia circuit with long post pacing interval. Entrainment pacing from the distal coronary sinus catheter similar is outside the circuit with a long post pacing interval. High density
electroanatomical mapping via the sphere 9 catheter in the a ferret mapping system was then performed defining a micro reentrant circuit on the anterior left atrium at the anterior roof just outside the antrum of the right superior pulmonary vein.
Mapping in this area terminated the tachycardia. The tachycardia could be reliably induced with burst atrial pacing but again moving the superior 9 catheter to this area would terminate the tachycardia. This area demonstrated marked fractionation
with very early unipolar signals. Ablation was performed via the sphere 9 catheter using radiofrequency energy in this area. Several applications were made. Attempts to reinduce the tachycardia resulted in nonsustained atrial tachycardia.
Several more lesions were given in and around this area.
Programmed electrostimulation including burst atrial pacing as well the delivery of decremental extrastimuli down to atrial effective refractory period and no sustained arrhythmias could be induced.
With burst atrial pacing down to 300 ms only several nonsustained beats of atrial tachycardia could be induced.
I.C.E. :
Pre-Ablation Post-Ablation
LVEF: 55 % 55 %
WMA: none none
Pericardial effusion: trace post trace post
LA Pressure 16 17
COMPLICATIONS:
None
SUMMARY:
- Mapping and ablation to re-isolate the PVs resulting in electrical isolation of the pulmonary veins
- Additional AF ablation sets X 3 after PVI (LA posterior wall, Inf/floor of the LA posterior wall and ligament of Juan David) resulting in elimination of the targeted extra PV contributors to atrial fibrillation.
- Mapping and ablation of second tachycardia (micro reentrant left atrial tachycardia) rendering it noninducible with programmed electrical stimulation
- 3-D Electroanatomical Mapping
- Intracardiac Ultrasound
- Ultrasound guidance for vascular access
Post ablation, I discussed today's findings and results with the patient's significant other, Chema.
RECOMMENDATIONS:
- Observe in monitored bed.
- Maintain oral anticoagulation.
- Maintain dronedarone until she can be reassessed at her at her next office visit.
- Office visit with me in 11/09/25.
- Continue cardiovascular care with Dr. Willy Dickey
Copy to:
Dr. Willy Dickey
[2025-07-17 09:13] LABS: ACT-LR - POC > 397 Seconds (116-155)
[2025-07-17 09:13] LABS: ACT-LR - POC > 397 Seconds (116-155)
[2025-07-17] MEDS: LASIX 40 MG IV (09:47)
--- NOTE | 2025-07-17 11:39 | PTCARENOTE ---
Dr Richard at pt bedside speaking to pt and pt's significant other Chema.
--- NOTE | 2025-07-17 14:05 | PTCARENOTE ---
Physical therapy at pt bedside speaking to pt and pt's significant other. Pt ambulating with Kourtney from physical therapy.
--- NOTE | 2025-07-17 14:20 | PTCARENOTE ---
Addendum entered by Anu Odell RN 07/17/25 14:22:
Kaylin Savage, research coordinator, also at pt bedside to place holter monitor on pt.
Original Note:
Danii, research coordinator at pt bedside speaking to pt and pt's significant other Chema.
--- NOTE | 2025-07-17 14:34 | PTCARENOTE ---
Dr Richard at pt bedside speaking to pt and research coordinators.
--- NOTE | 2025-07-17 15:01 | PTCARENOTE ---
Ashia d/c'd per Dr Ang. Pt aware and verbalizes understanding.
--- NOTE | 2025-07-17 15:03 | W.PN.UPDATE ---
Update Note
Progress Note Update
Pt seen post PFA. Right groin site without ht/bleeding, OOB ambulating. Post EKG SB w/1st deg AVB, no acute changes. Resume eliquis tonight at usual time. Discontinue multaq at this time. Pt post research study and research MOI Savage at bedside,
placed 24h holter monitor at discharge. Pt deconditioned with fatigue and weakness. PT eval at bedside and recommended home PT at this time. This will be arranged through [facility] office. Followup with Dr. Richard as scheduled. Home today if groin
site/tele remain stable.
== END 2025-07-17 14:50 | disposition home or self-care (01) ==
LOC: CATH 05:49
PROVIDERS: ATTENDING PHYSICIAN Internal Medicine Cardiovascular Disease; FAMILY PHYSICIAN Family Medicine; REFERRING PHYSICIAN Internal Medicine Cardiovascular Disease
DX: I48.19 Other persistent atrial fibrillation (principal); I47.19 Other supraventricular tachycardia; I13.0 Hypertensive heart and chronic kidney disease with heart failure and stage 1 through stage 4 chronic kidney disease, or unspecified chronic kidney disease; E78.00 Pure hypercholesterolemia, unspecified; I45.2 Bifascicular block; G47.33 Obstructive sleep apnea (adult) (pediatric); Z91.199 Patient's noncompliance with other medical treatment and regimen due to unspecified reason; K21.9 Gastro-esophageal reflux disease without esophagitis; Z86.0100 Personal history of colon polyps, unspecified; R13.10 Dysphagia, unspecified; R51.9 Headache, unspecified; M51.369 Other intervertebral disc degeneration, lumbar region without mention of lumbar back pain or lower extremity pain; M19.90 Unspecified osteoarthritis, unspecified site; Z85.51 Personal history of malignant neoplasm of bladder; Z85.42 Personal history of malignant neoplasm of other parts of uterus; F41.9 Anxiety disorder, unspecified; Z15.01 Genetic susceptibility to malignant neoplasm of breast; H91.93 Unspecified hearing loss, bilateral; E66.01 Morbid (severe) obesity due to excess calories; Z68.41 Body mass index [BMI] 40.0-44.9, adult; Z87.891 Personal history of nicotine dependence; F32.A Depression, unspecified; I49.8 Other specified cardiac arrhythmias; Z79.01 Long term (current) use of anticoagulants; N18.30 Chronic kidney disease, stage 3 unspecified; I50.30 Unspecified diastolic (congestive) heart failure; Z90.722 Acquired absence of ovaries, bilateral; Z90.710 Acquired absence of both cervix and uterus; Z79.899 Other long term (current) drug therapy; Z79.1 Long term (current) use of non-steroidal anti-inflammatories (NSAID)
CPT/HCPCS: C1894; C1733; C1769; C1766; C1730; C1892; 36415; 80053; 83735; 85025; 85347; 85610; 86850; 86900; 86901; 93005; 93655; 93656; 93657; 97162

== ENCOUNTER 2025-08-03 09:52 | Day surgery (SDC) | payer OTHER, SELFPAY ==
[2025-08-03] MEDS: ELIQUIS 5 MG PO (11:39)
--- NOTE | 2025-08-03 11:58 | ITS.CL.CARDI ---
[employer] - Cardioversion
Cardioversion
Procedure Report:
Procedure: Direct current electrical cardioversion
Pre-operative diagnosis: Persistent atrial fibrillation
Post-operative diagnosis: Persistent atrial fibrillation status post DC cardioversion to sinus rhythm
Anesthesia: MAC
Attending Physician: Sloan Bejarano MD
Procedure Description: The patient was brought to the electrophysiology laboratory in the fasting state. Adherence to anticoagulation regimen was confirmed. Informed consent was obtained from the patient prior to the start of the procedure.
Electrodes were placed on the patient and connected to an external defibrillator. Monitoring of blood pressure, ECG tracings, and pulse oximetry was initiated. The pads were applied to the patient in the anterior and posterior positions. The patient
was sedated by the anesthesiologist. A 200 joule biphasic synchronized shock was delivered to the patient under MAC anesthesia. Sinus rhythm was successfully restored. The patient recovered uneventfully from MAC anesthesia. There were no immediate
post-procedure complications. The patient left the lab in good condition. The attending physician was present throughout the entire procedure.
Impression: Successful direct current cardioversion with christian of sinus rhythm after one 200 joule biphasic synchronized shock.
== END 2025-08-03 12:31 | disposition home or self-care (01) ==
LOC: CATH 09:52
PROVIDERS: ATTENDING PHYSICIAN Internal Medicine Cardiovascular Disease; FAMILY PHYSICIAN Family Medicine; OTHER PHYSICIAN Internal Medicine Cardiovascular Disease
DX: I48.19 Other persistent atrial fibrillation (principal); I13.0 Hypertensive heart and chronic kidney disease with heart failure and stage 1 through stage 4 chronic kidney disease, or unspecified chronic kidney disease; I50.32 Chronic diastolic (congestive) heart failure; N18.30 Chronic kidney disease, stage 3 unspecified; I45.2 Bifascicular block; Z79.01 Long term (current) use of anticoagulants
CPT/HCPCS: 92960; 93005

== ENCOUNTER 2025-09-05 07:50 | Inpatient (IN) | payer OTHER, SELFPAY ==
[2025-09-05 08:27] VITALS: BP 118/83
[2025-09-05 08:32] VITALS: BMI 43.8
[2025-09-05 09:11] VITALS: BMI 43.6
[2025-09-05 09:50] LABS: Hematocrit 36.6 % (37.0-47.0); Hemoglobin 12.2 g/dL (12.0-16.0); Mean Corp Hgb Conc. 33.3 g/dL (33.0-37.0); Mean Corpuscular Volume 88.8 fL (81.0-99.0); Platelet Count 136 10^3/uL (130-400); Red Cell Dist. Width 13.9 % (11.5-14.5)
[2025-09-05 09:53] LABS: ALT (SGPT) 14 U/L (0-35); AST (SGOT) 21 U/L (14-36); Albumin 3.7 g/dl (3.5-5.0); Alkaline Phosphatase 95 U/L (38-126); Blood Urea Nitrogen 33 mg/dl (7-17); Calcium 9.0 mg/dl (8.4-10.2); Carbon Dioxide 28 mmol/L (22-30); Chloride 106 mmol/L (98-107); Estimated Creatinine Clearance 39 ml/min; Glucose 104 mg/dl (70-99); Magnesium 1.7 mg/dl (1.6-2.3); Potassium 4.7 mmol/L (3.5-5.1); Sodium 139 mmol/L (135-145); Total Protein 6.1 g/dl (6.3-8.2); eGFR 41.31
--- NOTE | 2025-09-05 10:23 | CM ---
Addendum entered by Louisa Jacobs 09/05/25 11:19:
Telephone call to Her insurance to check on co-pay for Dofetilide 250 mcg. She has a zero co-pay. Telephone call to [facility] to check if they have Dofetilide 250 mcg in stock. [facility] Has it in stock.
Original Note:
Reviewed chart. Met with Ms. Monique wheeler and her significant other to review discharge plans. She states prior to admission she resides with her significant other in a second floor condo. She states she has a full flight of steps to get into her
condo. Once in the condo she has a one level living. She states prior to admission she was independent with ambulation and adls. She states she alvarez not have any DME in the home. She states she has a prescription plan and uses [facility]. Will
check on co-pay for Dofetilide and to see if [facility] has it in stock. She will also need a three day script to send to [facility] for a three supply to go home with her. Medical work-up in progress. The discharge plan is to return home
with her significant other when medically stable.
--- NOTE | 2025-09-05 10:51 | W.CARD.TIKOS ---
Initiate Tikosyn
-
I verify that the patient has not taken any verapamil (Isoptin/Calan), ketoconazole (Nizoral), cimetidine (Tagamet), trimethoprim (Trimpex), trimethoprim/sulfamethoxazole (Bactrim), megesterol (Megace), prochlorperazine (Compazine),
hydrochlorothiazide (HCTZ), dolutegravir (Tivicay) or any Class I or Class III anti-arrhythmic within the last three days
AND
I verify that the patient has not taken amiodarone within the last THREE months, or that the patient's amiodarone plasma concentration is <0.3 mcg/mL.
Creatinine 1.3 mg/dL (0.6-1.0) H 09/05/25 09:17
Estimated Creat Clear 39 ml/min 09/05/25 09:17
calculated creatinine clearance=57.86
Does patient have a Ventricular Conduction Abnormality: Yes
I have assessed the baseline QTc interval (using QT for heart rate less than 60 bpm) and deemed the patient is appropriate for Dofetilide therapy. I understand that Tikosyn is contraindicated if the QTc is >440msec (500msec in patients with
ventricular conduction abnormalities).
Baseline QTc (in msec): 477
QTc interval is greater than 440msec without conduction abnormality OR greater than 500msec with a conduction abnormality, but acceptable to proceed per Cardiology attending.
Reason for Administration with Prolonged QTc: Other Atrial Arrhythmia
Ordering Physician: Hakeem Bassett
--- NOTE | 2025-09-05 11:36 | CON.CAR ---
Addendum entered and electronically signed by Hakeem Bassett MD 09/05/25 12:51:
Please use the below as a history and physical, not a consultation
80-year-old woman admitted for dofetilide loading.
PMH: Paroxysmal atrial fibrillation, hypertension, sleep apnea, obesity, PVI in December and again in June, history of 2 cardioversions as well. Intolerant of amiodarone and breakthrough on dronedarone.
Current meds: Amlodipine 5 mg a day, apixaban 5 mg twice daily, celecoxib 200 mg a day, Cymbalta, 60 mg daily, furosemide 20 mg a day, metoprolol ER 100 mg at bedtime and 50 mg daily, pantoprazole
Rest of history as below.
118/83, pulse 70, respiratory rate 18, head neck exam markable lungs are clear, irregular rate and rhythm without murmurs or gallops, extremities with trace to 1+ edema JVD okay, neuro nonfocal
ECG: A-fib/atypical flutter, 80 bpm, possible inferior ID, left axis deviation, possible anterolateral ID with IVCD/incomplete left bundle branch block
Hemoglobin 12.2, BUN and creatinine 33 and 1.3, GFR 41
Echo: 11/02/2024: EF 50-55% mild LVH, normal RV, normal atria
Impression:
Recurrent persistent atrial fibrillation
History of PVI x 2
Hypertension sleep apnea
Obesity
Plan:
Dofetilide loading and if needed cardioversion
Weight loss is her greatest opportunity for improvement
Consider [facility] and/or GLP-1 agonists
Original Note:
Consultation
Consultation Request
Date/Time Consultation Requested: 09/05/2025
Performing Provider: EVA Clemens for Dr. Bassett
Reason for Consultation: Direct admission for Tikosyn
Medical History
-
Chief Complaint: Palpitations
History of Present Illness:
80-year-old female with history of symptomatic atrial fibrillation, hypertension, obstructive sleep apnea, obesity presents for direct admission for Tikosyn initiation. She has a history of symptomatic atrial fibrillation initially treated with
amiodarone in 2022 but stopped in May 2023 due to intolerance. She subsequently started dronedarone in 2023 and had a cardioversion in August 2024. She underwent pulsed field PVI on January 05, 2025 and dronedarone was stopped at that time. At
the time of her ablation she was enrolled in the [employer] post approval study for the pulse select PFA system. Her [id number] score is 4 (age, hypertension, female) and she is on Eliquis.
She had recurrent A-fib and is status post cardioversion 05/15/2025 and then repeat PVI on 07/17/2025. She went underwent mapping and ablation to really isolate the pulmonary veins. She had additional ablation sets to the left atrial posterior wall,
inferior/floor of the left atrial posterior wall, and ligament of Juan David. 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 She was
restarted on Multaq. She had recurrent A-fib and underwent cardioversion on 08/03/2025. She had recurrent A-fib after the cardioversion and presents now for initiation of Tikosyn. Last dose of Multaq was at least a week ago per pt but cannot
recall exact date.
Past medical history:
Paroxysmal atrial fibrillation
- Dronedarone 2023
-Cardioversion 2023
-Pulsed field PVI 01/05/2025, and [employer] post approval study for the pulse select PFA system
-Cardioversion 05/15/2025
-Repeat PVI and additional ablation set 07/17/2025
-Cardioversion 08/03/2025
Obstructive sleep apnea on CPAP
Hypertension
obesity
Past Medical History
Past Medical History: Other
Past Surgical History: Other
Social History
Tobacco: Former Smoker
Alcohol: Occasional
Family History
Family History: Other (Father ID age 83)
Allergies / Home Medications
Allergy/AdvReac Type Severity Reaction Status Date / Time
fluoxetine (From Prozac) AdvReac Nausea Verified 08/30/25 08:40
�Medication �Instructions �Recorded �Confirmed �Type
albuterol sulfate 90 mcg/actuation 1 inh inhalation Q4H PRN SOB 12/19/24 09/05/25 History
breath activated powder inhaler
apixaban 5 mg tablet (Eliquis) 5 mg PO BID 12/19/24 09/05/25 History
celecoxib 200 mg capsule (Celebrex) 200 mg PO DAILY 12/19/24 09/05/25 History
duloxetine 30 mg capsule,delayed 60 mg PO DAILY 12/19/24 09/05/25 History
release
ergocalciferol (vitamin D2) 1,250 1,250 mcg PO MO 12/19/24 09/05/25 History
mcg (50,000 unit) capsule
furosemide 20 mg tablet 20 mg PO DAILY 12/19/24 09/05/25 History
metoprolol succinate 100 mg 100 mg PO HS 12/19/24 09/05/25 History
tablet,extended release 24 hr
pantoprazole 40 mg tablet,delayed 40 mg PO BID 12/19/24 09/05/25 History
release
potassium chloride 10 mEq 20 meq PO DAILY 12/19/24 09/05/25 History
tablet,extended release (Klor-Con)
acetaminophen 500 mg tablet 1,500 mg PO BID 01/05/25 09/05/25 History
metoprolol succinate 50 mg 50 mg PO DAILY 06/30/25 09/05/25 History
tablet,extended release 24 hr
amlodipine 5 mg tablet 5 mg PO DAILY 07/17/25 09/05/25 History
Review of Systems
-
History Source: Patient
All other systems: Negative unless noted
Physical Exam
Vital Signs
Temp Pulse Resp BP Pulse Ox
97.6 F 70 18 118/83 96
09/05/25 08:32 09/05/25 09:30 09/05/25 08:32 09/05/25 08:27 09/05/25 09:05
GEN: No distress, awake, Ox3
HEENT: supple, anicteric, mmm
LUNGS: CTA, no wheezes/rales
CV: Irregularly irregular , no murmur
ABD: soft, BS+, NT/ND
EXT: No edema
NEURO: Gross non-focal
SKIN: No rash
Lab Results
09/05/25 09:17
09/05/25 09:17
Impression / Plan
-
PCP:
Primary clinic assistant: Dr. Dickey
Prim EP clinic assistant: Dr Wili Richard
Impression:
Atrial fibrillation
HTN
KEL
Obesity
Previous CV testing:
Echo 11/02/2024 at [place]: EF 50 to 55%, mild LVH, normal RV size and function, normal-sized LA and RA
Plan:
- Presents for Tikosyn initiation in setting of recurrent atrial fibrillation status post PVI 12/2024 and repeat PVI 07/17/2025
-Previously on Multaq but intolerant with diarrhea, med stopped at least 1 week ago
- Previously intolerant of amiodarone
-[id number]-[id number] score 4 (age, hypertension, female)
-Calculated creatinine clearance 57.86, therefore will initiate Tikosyn 250 mcg twice daily
-K4.7, mag 1.7, will replete with mag oxide 400 mg p.o. now
-Daily BMP and magnesium levels
-Twelve-lead EKG: A-fib, QTc 477 ms, QRS 116 ms
- Cardioversion on 09/07 if she does not convert to NSR after Tikosyn initiation
Data Reviewed
-
EKG: Tracing Personally Visualized and interpreted
Labs: Labs Reviewed by me
Old Records: Reviewed
[2025-09-05 11:43] VITALS: BP 124/87
[2025-09-05] MEDS: MAGNESIUM OXIDE 400 MG PO (12:10)
[2025-09-05] MEDS: TIKOSYN 250 MCG PO ×2 (12:10→23:24)
[2025-09-05 16:20] VITALS: BP 134/100
[2025-09-05 19:07] VITALS: BP 136/91
[2025-09-05] MEDS: PROTONIX 40 MG PO (20:01)
[2025-09-05] MEDS: ELIQUIS 5 MG PO (20:01)
[2025-09-05] MEDS: TOPROL XL 100 MG PO (22:21)
[2025-09-05 22:23] VITALS: BP 126/84
--- NOTE | 2025-09-06 00:02 | PTCARENOTE ---
Received pt at change of shift resting in bed. pt in and out of Afib-SR w/ first degree AVB and PAC's on tele. HR 60's-70's. EKG obtained for rhythm change and QTc resulted 504. Dr. Ben Lawrence made aware, instructed RN okay to give 2300 dose
of Tikosyn. Administered per order--see MAR. Encouraged pt to call RN with any questions/concerns. Call quinones within reach.
[2025-09-06 02:19] VITALS: BP 125/75
[2025-09-06] MEDS: TYLENOL 650 MG PO (02:20)
[2025-09-06 03:10] LABS: Blood Urea Nitrogen 27 mg/dl (7-17); Calcium 9.0 mg/dl (8.4-10.2); Carbon Dioxide 30 mmol/L (22-30); Chloride 105 mmol/L (98-107); Estimated Creatinine Clearance 46 ml/min; Glucose 102 mg/dl (70-99); Magnesium 1.8 mg/dl (1.6-2.3); Potassium 4.4 mmol/L (3.5-5.1); Sodium 141 mmol/L (135-145); eGFR 50.48
[2025-09-06 06:00] VITALS: BMI 43.6
[2025-09-06 08:18] VITALS: BP 145/97
[2025-09-06] MEDS: CYMBALTA DELAYED RELEASE 60 MG PO (08:22)
[2025-09-06] MEDS: CELEBREX 200 MG PO (08:23)
[2025-09-06] MEDS: PROTONIX 40 MG PO ×2 (08:23→19:26)
[2025-09-06] MEDS: NORVASC 5 MG PO (08:24)
[2025-09-06] MEDS: LASIX 20 MG PO (08:24)
--- NOTE | 2025-09-06 08:41 | W.PN.CARDCBS ---
Addendum entered and electronically signed by Ben Lawrence MD 09/06/25 15:02:
I saw and examined the patient.
The Aesthetician's note was reviewed and I agree with the note.
Comment:
GEN: No distress, awake, Ox3
HEENT: supple, anicteric, mmm
LUNGS: CTA, no wheezes/rales
CV: Reg, S1/S2, 1/6 syst LSB, no gallop
ABD: soft, BS+, NT/ND
EXT: No edema
NEURO: Gross non-focal
SKIN: No rash
Plan:
She is back in sinus. She is complaining of some fatigue and tiredness. We agreed to continue Tikosyn 250 mcg twice daily and hold metoprolol.
QTc stable at 480 ms. Continue to follow. Continue Eliquis.
Increase activity.
Original Note:
Today's Communication / Plan
-
Continue with Tikosyn 250 mcg BID
Impression / Plan
-
PCP: Dr. Tamanna Ponce
Primary pharmacy sales representative: Dr. Dickey
Prim EP pharmacy sales representative: Dr Wili Richard
Impression:
Direct admission for Tikosyn load for persistent A-fib 09/05/2025
Persistent atrial fibrillation
Previously intolerant to amiodarone due to nausea
Previously intolerant to Multaq due to nausea and fatigue
s/p PVI 12/2024
s/p repeat PVI 07/17/2025
Chronic Eliquis OAC
CKD 3a
Anxiety
HTN
KEL on CPAP
Obesity
h/o bladder cancer 1985, right sided breast cancer 2007, uterine cancer with hysterectomy 2010
Previous CV testing:
Echo 11/02/2024 at [place]: EF 50 to 55%, mild LVH, normal RV size and function, normal-sized LA and RA
Plan:
-Patient was admitted directly for Tikosyn loading for recurrent and persistent A-fib on 09/05/2025.
-Patient is anxious with symptoms of nausea, SOB and fatigue on 09/06/2025 and she believes these are related to Tikosyn. Patient has had similar intolerances to amiodarone and Multaq. Patient is anxious and states that she is worried that her
persistent atrial fibrillation is actually the symptom of an underlying and recurrent cancer, as noted above patient has had previous bladder, breast and uterine cancer. We spent time talking in the room and I reassured patient that we saw no
obvious evidence of recurrent cancer and that there are many patients with recurrent and persistent A-fib that do not have cancer. It is also possible symptoms are being driven by sinus bradycardia, patient spontaneously converted to SR overnight
and received her usual dose of Toprol XL 100 mg daily.
-Hold Toprol XL for now, patient was taking Toprol XL 50 mg in a.m. and 100 mg p.m. daily prior to admission
-Continue with plan dose of Tikosyn 250 mcg every 12 hours, 3rd dose scheduled for Thursday. 5th dose scheduled for
-QTc 488 ms on my review of ECG following 3rd dose of Tikosyn Thursday morning
-Outpatient dose of Eliquis 5 mg BID has been continued
Progress Note - Warp Dyeing Tender
Subjective
Date of Service: September 06, 2025
She feels unusually tired, SOB and says she feels nauseous and is worried that she is having a reaction to Tikosyn
Objective
Labs:
09/05/25 09:17
09/06/25 02:25
Labs
Hgb 12.2 g/dL (12.0-16.0) 09/05/25 09:17
Hct 36.6 % (37.0-47.0) L 09/05/25 09:17
Plt Count 136 10^3/uL (130-400) 09/05/25 09:17
Sodium 141 mmol/L (135-145) 09/06/25 02:25
Potassium 4.4 mmol/L (3.5-5.1) 09/06/25 02:25
BUN 27 mg/dl (7-17) H 09/06/25 02:25
Creatinine 1.1 mg/dL (0.6-1.0) H 09/06/25 02:25
Glucose 102 mg/dl (70-99) H 09/06/25 02:25
Vital Signs and I&O:
Vital Signs
Temp Pulse Resp BP Pulse Ox
97.8 F 58 15 125/75 97
09/06/25 08:21 09/06/25 08:21 09/06/25 08:21 09/06/25 02:19 09/06/25 08:21
Vital Signs
Temp Pulse Resp BP Pulse Ox
97.8 F 58 15 125/75 97
09/06/25 08:21 09/06/25 08:21 09/06/25 08:21 09/06/25 02:19 09/06/25 08:21
Intake & Output
09/04/25 09/05/25 09/06/25 09/07/25
06:59 06:59 06:59 06:59
Intake Total 480 / 480
Balance 480 / 480
Physical Exam
Physical Exam
GEN: AAO x 3, anxious
LUNGS: RA. No wheeze
CV: SR on telemetry
[2025-09-06] MEDS: TIKOSYN 250 MCG PO ×2 (10:19→21:07)
[2025-09-06] MEDS: ELIQUIS 5 MG PO ×2 (10:19→19:26)
--- NOTE | 2025-09-06 10:55 | CM ---
Reviewed chart. Met with Mrs. Lynn and her significant other to review discharge plans. We reviewed co-pay for her Dofetilide co-pay is zero. Prior to admission she resides with her significant other in a second floor condo. She has a full
flight of steps to get into her condo. Once in the condo she has a one level living. Prior to admission she was independent with ambulation and adls. She does not have any DME in the home. She has a prescription plan and uses [facility]. She
will also need a three day script to send to [facility] for a three supply to go home with her. Medical work-up in progress. The discharge plan is to return home with her significant other when medically stable.
[2025-09-06 11:03] VITALS: BP 134/72
--- NOTE | 2025-09-06 13:57 | PTCARENOTE ---
Pt c/o feeling lightheaded and SOB after walking back from the bathroom this morning. HR 50's with first deg block. Sujatha Owens aware. EKG ordered and obtained. Sujatha and Dr Lawrence came to see her. Pt reports feeling better this afternoon.
[2025-09-06 15:37] VITALS: BP 138/71
[2025-09-06 18:53] VITALS: BP 132/87
--- NOTE | 2025-09-06 22:05 | PTCARENOTE ---
Received pt at change of shift resting in bed. SB w/ first degree AVB and PAC's on tele. HR 50's-60's. Tikosyn dose #4 administered-see JAN. Reached out to VASHTI Dugan for HR in 50's. Toprol XL on hold for tonight. pt denies any
lightheadedness/dizziness at this time. Encouraged pt to call RN with any questions/concerns. Call quinones within reach.
[2025-09-06 23:19] VITALS: BP 132/78
[2025-09-07 02:38] VITALS: BP 136/66
[2025-09-07 03:18] LABS: Blood Urea Nitrogen 22 mg/dl (7-17); Calcium 9.1 mg/dl (8.4-10.2); Carbon Dioxide 28 mmol/L (22-30); Chloride 107 mmol/L (98-107); Estimated Creatinine Clearance 46 ml/min; Glucose 102 mg/dl (70-99); Magnesium 1.9 mg/dl (1.6-2.3); Potassium 4.1 mmol/L (3.5-5.1); Sodium 139 mmol/L (135-145); eGFR 50.48
[2025-09-07 05:46] VITALS: BMI 43.4
--- NOTE | 2025-09-07 07:54 | W.PN.CARDCBS ---
Addendum entered and electronically signed by Ben Lawrence MD 09/07/25 13:51:
I saw and examined the patient.
The Pet Stylist's note was reviewed and I agree with the note.
Comment:
GEN: No distress, awake, Ox3
HEENT: supple, anicteric, mmm
LUNGS: CTA, no wheezes/rales
CV: Reg, S1/S2, 1/6 syst LSB, no gallop
ABD: soft, BS+, NT/ND
EXT: No edema
NEURO: Gross non-focal
SKIN: No rash
Plan:
Remains in sinus rhythm. Metoprolol has been stopped.
Will review ECG but likely for discharge home today on Tikosyn to 250 mcg twice daily.
Continue Eliquis
Continue Lasix 20 mg daily. Continue weight loss.
Original Note:
Today's Communication / Plan
-
5th dose of Tikosyn given this morning and if ECG is stable she can be discharged to home
Outpatient doses of Toprol-XL 50 mg a.m. and 100 mg p.m. daily have been stopped due to sinus bradycardia
Expect discharge to home today
[id number]
Impression / Plan
-
PCP: Dr. Tamanna Ponce
Primary web operations administrator: Dr. Dickey
Prim EP web operations administrator: Dr Wili Richard
Impression:
Direct admission for Tikosyn load for persistent A-fib 09/05/2025
Persistent atrial fibrillation
Previously intolerant to amiodarone due to nausea
Previously intolerant to Multaq due to nausea and fatigue
s/p PVI 12/2024
s/p repeat PVI 07/17/2025
Chronic Eliquis OAC
CKD 3a
Anxiety
HTN
KEL on CPAP
Obesity
h/o bladder cancer 1985, right sided breast cancer 2007, uterine cancer with hysterectomy 2010
Echo 11/02/2024 at [place]: EF 50 to 55%, mild LVH, normal RV size and function, normal-sized LA and RA
Plan:
-Patient was admitted directly for Tikosyn loading for recurrent and persistent A-fib on 09/05/2025.
-QTc stable at 508 ms following 4th dose of Tikosyn given on Thursday night, ECG reviewed by me , 09/07/2025
-5th dose of Tikosyn 250 mcg is scheduled for morning and if QTc is stable patient will be discharged to home
-Patient spontaneously converted to SR following 2nd dose of Tikosyn
-Patient had symptoms of nausea, SOB and fatigue following conversion to SR on 09/06/2025 and patient believes that these were side effects of Tikosyn, but also seem to coincide with sinus bradycardia. Patient has had similar intolerances to
amiodarone and Multaq. Patient appeared anxious and we spent a good time talking and patient shared her concerns that persistent atrial fibrillation is actually the symptom of an underlying and recurrent cancer, as noted above patient has had
previous bladder, breast and uterine cancer. I reassured patient that we saw no obvious evidence of recurrent cancer at time of CT chest 12/20/2024 and that there are many patients with recurrent and persistent A-fib that do not have cancer.
-Patient was taking Toprol XL 50 mg in a.m. and 100 mg p.m. daily prior to admission, but now on hold and will not restart prior to discharge.
-Outpatient dose of Eliquis 5 mg BID has been continued
-Likely for discharge 09/07/2025 if ECG is stable following 5th dose of Tikosyn
Progress Note - C++ Professor
Subjective
Date of Service: September 07, 2025
She feels better today, she feels less anxious, still tired, but no nausea
Objective
Labs:
09/05/25 09:17
09/07/25 02:44
Labs
Hgb 12.2 g/dL (12.0-16.0) 09/05/25 09:17
Hct 36.6 % (37.0-47.0) L 09/05/25 09:17
Plt Count 136 10^3/uL (130-400) 09/05/25 09:17
Sodium 139 mmol/L (135-145) 09/07/25 02:44
Potassium 4.1 mmol/L (3.5-5.1) 09/07/25 02:44
BUN 22 mg/dl (7-17) H 09/07/25 02:44
Creatinine 1.1 mg/dL (0.6-1.0) H 09/07/25 02:44
Glucose 102 mg/dl (70-99) H 09/07/25 02:44
Vital Signs and I&O:
Vital Signs
Temp Pulse Resp BP Pulse Ox
98.0 F 61 16 136/66 93
09/07/25 02:37 09/07/25 06:00 09/07/25 02:37 09/07/25 02:38 09/07/25 02:37
Vital Signs
Temp Pulse Resp BP Pulse Ox
98.0 F 61 16 136/66 93
09/07/25 02:37 09/07/25 06:00 09/07/25 02:37 09/07/25 02:38 09/07/25 02:37
Intake & Output
09/05/25 09/06/25 09/07/25 09/08/25
06:59 06:59 06:59 06:59
Intake Total 480 / 480 360 / 360
Output Total 1350 / 1350
Balance 480 / 480 -990 / -990
Physical Exam
Physical Exam
GEN: AAO x 3
LUNGS: RA. No wheeze
CV: SR on telemetry
[2025-09-07 08:30] VITALS: BP 133/69
[2025-09-07] MEDS: TIKOSYN 250 MCG PO (08:34)
[2025-09-07] MEDS: CELEBREX 200 MG PO (08:43)
[2025-09-07] MEDS: PROTONIX 40 MG PO (08:43)
[2025-09-07] MEDS: CYMBALTA DELAYED RELEASE 60 MG PO (08:44)
[2025-09-07] MEDS: NORVASC 5 MG PO (08:44)
[2025-09-07] MEDS: LASIX 20 MG PO (08:44)
[2025-09-07] MEDS: ELIQUIS 5 MG PO (08:44)
--- NOTE | 2025-09-07 10:47 | W.PN.UPDATE ---
Update Note
Progress Note Update
ECG 2 hours after 5th dose of Tikosyn 250 mcg every 12 hours was reviewed by me and QTc is stable and a bit improved to 501 ms in the setting of SR with PACs. Patient stable for discharge to home.
--- NOTE | 2025-09-07 10:48 | W.DS.TRANS ---
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
-
Discharge Instructions:
Discharge Diagnosis/Procedures Tikosyn loading for recurrent and persistent
atrial fibrillation
Diet Low Sodium
Activity As tolerated
Driving Restrictions As prior to admission
Bathing Restrictions None
Specialty Instructions Weigh Daily
Instructions:
Stand-Alone Forms:
Changes to Home Medications: Yes
Discharge Medications:
DC Medications w/original date entered in [facility]
albuterol sulfate 90 mcg/actuation breath activated powder inhaler 1 inh inhalation Q4H PRN SOB 12/19/24
apixaban 5 mg tablet (Eliquis) 5 mg PO BID 12/19/24
celecoxib 200 mg capsule (Celebrex) 200 mg PO DAILY 12/19/24
duloxetine 30 mg capsule,delayed release 60 mg PO DAILY 12/19/24
ergocalciferol (vitamin D2) 1,250 mcg (50,000 unit) capsule 1,250 mcg PO MO 12/19/24
furosemide 20 mg tablet 20 mg PO DAILY 12/19/24
pantoprazole 40 mg tablet,delayed release 40 mg PO BID 12/19/24
acetaminophen 500 mg tablet 1,500 mg PO BID 01/05/25
amlodipine 5 mg tablet 5 mg PO DAILY 07/17/25
dofetilide 250 mcg capsule 250 mcg PO Q12H Arrhythmia #60 caps 09/07/25
Home Medication Changes
New to Tikosyn
Toprol-XL stop
Pending Results: No
[2025-09-07] MEDS: PREVNAR 20 0.5 ML IM (11:13)
--- NOTE | 2025-09-07 11:18 | CM ---
Reviewed chart. Met with Mrs. Lynn to review discharge plans. She states she is feeling well and maybe able to home soon. She states she is current with [facility]. She states she would like to resume [facility]. Telephone call
to [facility] to make the referral. Referral already made by the [facility] Liaison. We reviewed co-pay for her Dofetilide co-pay is zero. Prior to admission she resides with her significant other in a second floor condo. She has a full
flight of steps to get into her condo. Once in the condo she has a one level living. Prior to admission she was independent with ambulation and adls. She does not have any DME in the home. She has a prescription plan and uses [facility]. She
will also need a three day script to send to [facility] for a three supply to go home with her. Medical work-up in progress. The discharge plan is to return home with her significant other and resumption of [facility] when
medically stable.
[2025-09-07 11:19] VITALS: BP 126/69
--- NOTE | 2025-09-07 12:48 | PTCARENOTE ---
Pt seen by YAMILETH Espino and . Telemetry and IV device removed. discharge instructions reviewed with pt and her SO regarding medications and their possible side effects, reporting cares and concerns and follow up appt's. Very good
understanding taught back to this RN. Pt given 3 days supply of Tikosyn. Pt escorted out via wheelchair and discharged to home.
== END 2025-09-07 12:45 | disposition home health service (06) | DRG 309 ==
LOC: IVU 07:50
PROVIDERS: Nurse Practitioner; ADMITTING PHYSICIAN Internal Medicine Cardiovascular Disease
PROC: 3E0234Z Introduction of Serum, Toxoid and Vaccine into Muscle, Percutaneous Approach (ICD-10-PCS; 2025-09-07)
DX: I48.19 Other persistent atrial fibrillation (principal); I13.0 Hypertensive heart and chronic kidney disease with heart failure and stage 1 through stage 4 chronic kidney disease, or unspecified chronic kidney disease; I50.32 Chronic diastolic (congestive) heart failure; Z68.41 Body mass index [BMI] 40.0-44.9, adult; I48.92 Unspecified atrial flutter; N18.31 Chronic kidney disease, stage 3a; F41.9 Anxiety disorder, unspecified; G47.33 Obstructive sleep apnea (adult) (pediatric); E66.01 Morbid (severe) obesity due to excess calories; E78.5 Hyperlipidemia, unspecified; F32.A Depression, unspecified; H91.90 Unspecified hearing loss, unspecified ear; R26.9 Unspecified abnormalities of gait and mobility; I45.2 Bifascicular block; K21.9 Gastro-esophageal reflux disease without esophagitis; M19.90 Unspecified osteoarthritis, unspecified site; R09.02 Hypoxemia; R13.10 Dysphagia, unspecified; Z23 Encounter for immunization; Z51.81 Encounter for therapeutic drug level monitoring; Z79.899 Other long term (current) drug therapy; Z79.01 Long term (current) use of anticoagulants; Z85.42 Personal history of malignant neoplasm of other parts of uterus; Z85.51 Personal history of malignant neoplasm of bladder; Z85.3 Personal history of malignant neoplasm of breast; Z87.891 Personal history of nicotine dependence; Z90.710 Acquired absence of both cervix and uterus
CPT/HCPCS: 80048; 80053; 83735; 85027; 90677; 93005; G0009